=== PATIENT | female | born 2000 | race Two or more races ===

== ENCOUNTER 2021-06-28 17:04 | Emergency (ER) | payer MEDICAID, OTHER ==
[~2021-06-28] VITALS: Ht 157.5 cm; Wt 52.2 kg
[2021-06-28 17:06] VITALS: BP 136/72
== END 2021-06-28 23:36 | disposition left against medical advice (07) ==
LOC: ER 17:07
DX: R10.2 Pelvic and perineal pain (principal); Z53.21 Procedure and treatment not carried out due to patient leaving prior to being seen by health care provider